=== PATIENT | female | born 1995 | race Caucasian/White ===

== ENCOUNTER 2024-08-11 17:46 | Outpatient (CLI) | payer OTHER | END 2024-08-11 18:47 | disposition home or self-care (01) | LOC: NST 17:46 | PROVIDERS: ATTEND Obstetrics & Gynecology Maternal & Fetal Medicine | DX: Z3A.36 36 weeks gestation of pregnancy (principal) ==

== ENCOUNTER 2024-08-23 10:40 | Inpatient (IN) | payer OTHER ==
[~2024-08-23] VITALS: Ht 162.6 cm; Wt 70.3 kg
[2024-08-23 11:16] LABS: HEMATOCRIT 34.1 % (36.0-45.00); MEAN CELL VOLUME 91.8 fL (80.00-100.00); MEAN CORPUSCULAR HEMOGLOBIN 32.3 pg (27.00-32.0); MEAN CORPUSCULAR HGB CONC 35.2 g/dl (32.0-36.0); PLATELET COUNT 176 K/uL (150-450); RED BLOOD COUNT 3.71 M/uL (4.00-6.00); RED CELL DISTRIBUTION WIDTH 13.4 % (11.5-14.5)
[2024-08-23] MEDS ORDERED: ONDANSETRON ODT4 MG PO (11:22)
[2024-08-23] MEDS ORDERED: RIZATRIPTAN10 M1 PO (11:23)
[2024-08-23 11:36] LABS: INR < 0.93; PARTIAL THROMBOPLASTIN TIME 24.9 SECONDS (22.0-34.0); PROTHROMBIN TIME 10.1 SECONDS (9.0-11.5)
[2024-08-23 11:54] LABS: BILIRUBIN TOTAL 0.36 mg/dL (0.3-1.2); CALCIUM 8.9 mg/dL (8.5-10.1); CREATININE SERUM 0.48 mg/dL (0.55-1.02); GFR 150.85; GLOBULINA 3.1 G/DL (2.4-3.5); POTASSIUM 3.81 mEq/L (3.5-5.1); TOTAL PROTEIN 6.1 gm/dL (6.4-8.2)
[2024-08-31 06:42] VITALS: BP 106/65
[2024-08-31] MEDS ORDERED: CEFAZOLIN SODIUM 1,000 MG VIAL ONE (07:51)
[2024-08-31] MEDS ORDERED: CITRIC ACID/SODIUM CITRATE 30 ML BLIST.PACK PO ONE ×2 (07:52→11:30)
[2024-08-31] MEDS ORDERED: OXYTOCIN 10 UNITS/ML VIAL ONE ×2 (09:08→12:51)
[2024-08-31] MEDS ORDERED: ERYTHROMYCIN BASE OPHT 1GM EACH TUBE OP ONE ×2 (09:09→11:30)
[2024-08-31] MEDS ORDERED: MORPHINE SULFATE 4 MG/ML CARTRIDGE IV PRN (10:45)
[2024-08-31] MEDS ORDERED: OXYTOCIN 1,000 ML IV SCH (10:45)
[2024-08-31] MEDS ORDERED: MORPHINE SULFATE 4 MG/ML VIAL IV ONE ×2 (11:30→13:00)
[2024-08-31] MEDS ORDERED: CEFAZOLIN SODIUM 1,000 MG VIAL IV ONE (11:30)
[2024-08-31] MEDS ORDERED: OXYTOCIN 20 UNITS/1000ML RL PIGGYBAG IV ONE (11:30)
[2024-08-31] MEDS ORDERED: ONDANSETRON HCL 2 MG/ML VIAL IV ONE (13:15)
[2024-08-31] MEDS ORDERED: ONDANSETRON HCL 2 MG/ML VIAL ONE (13:15)
[2024-08-31 13:54] VITALS: BP 121/70
[2024-08-31 15:45] VITALS: BP 112/67
[2024-08-31] MEDS ORDERED: ONDANSETRON HCL 2 MG/ML VIAL IV PRN (18:00)
[2024-08-31 20:00] VITALS: BP 106/64
[2024-09-01] VITALS: BP 105/65
[2024-09-01] MEDS ORDERED: IBUprofen 400 MG TABLET PO SCH ×2 (09:00→10:30)
[2024-09-01 09:10] VITALS: BP 103/66
[2024-09-01 09:21] LABS: HEMATOCRIT 28.4 % (36.0-45.00); MEAN CORPUSCULAR HEMOGLOBIN 32.8 pg (27.00-32.0); MEAN CORPUSCULAR HGB CONC 35.2 g/dl (32.0-36.0); PLATELET COUNT 159 K/uL (150-450); RED BLOOD COUNT 3.06 M/uL (4.00-6.00)
[2024-09-01 16:02] VITALS: BP 115/70
[2024-09-02 00:35] VITALS: BP 100/60
[2024-09-02] MEDS ORDERED: OxyCODONE HCL 5 MG TABLET (ROXICODONE) PO PRN (06:00)
[2024-09-02 08:59] VITALS: BP 103/62
[2024-09-02] MEDS ORDERED: IBUprofen 400 MG TABLET PO SCH (09:00)
== END 2024-09-02 14:12 | disposition home or self-care (01) | DRG 788 ==
LOC: OB/GYN 08-31 06:24 → O/R 08-31 06:24 → OB/GYN 08-31 09:15
PROVIDERS: Obstetrics & Gynecology; ADMIT Obstetrics & Gynecology Maternal & Fetal Medicine; ATTEND Obstetrics & Gynecology Maternal & Fetal Medicine
PROC: 4A1HXCZ Monitoring of Products of Conception, Cardiac Rate, External Approach (ICD-10-PCS; 2024-08-31)
PROC: 10D00Z1 Extraction of Products of Conception, Low, Open Approach (ICD-10-PCS; principal; 2024-08-31 09:15)
DX: O69.81X0 Labor and delivery complicated by cord around neck, without compression, not applicable or unspecified (principal); Z3A.39 39 weeks gestation of pregnancy; Z37.0 Single live birth